=== PATIENT | female | born 1955 | race Hispanic/Latino ===

== ENCOUNTER 2018-04-05 19:43 | Emergency (ER) | payer SELFPAY ==
[2018-04-05] MEDS ORDERED: IBUPROFEN 600 MG TABLET ONE (20:26)
[2018-04-05] MEDS ORDERED: LIDOCAINE HCL-MPF 1% 2ML VIAL ONE (20:26)
[2018-04-05] MEDS ORDERED: CEFTRIAXONE SODIUM 1 GM ONE (20:26)
[2018-04-05] MEDS ORDERED: CLONIDINE HCL 0.1 MG TABLET ONE ×2 (20:59→22:01)
[2018-04-05] MEDS ORDERED: LORAZEPAM 2 MG/ML 1 ML VIAL ONE (21:00)
== END 2018-04-05 22:42 | disposition home or self-care (01) ==
LOC: EDH 19:43
DX: S51.851A Open bite of right forearm, initial encounter (principal); I10 Essential (primary) hypertension; W55.01XA Bitten by cat, initial encounter; Y93.89 Activity, other specified; Y92.89 Other specified places as the place of occurrence of the external cause; Y99.8 Other external cause status
CPT/HCPCS: 73090; 96372 ×2; 99284; J0696; J2060; J3490

== ENCOUNTER 2018-04-07 19:05 | Emergency (ER) | payer SELFPAY ==
[2018-04-07 20:14] LABS: BASOPHILS % (AUTO) 0.4 % (0.0-5.0); EOSINOPHILS % (AUTO) 4.4 % (0.0-8.0); HEMATOCRIT 40.1 % (36-48); LYMPHOCYTES % (AUTO) 16.7 % (21.0-51.0); MEAN CORPUSCULAR HEMOGLOBIN 28.5 pg (27.0-33.0); MEAN CORPUSCULAR HGB CONC 33.3 g/dL (32.0-36.0); MEAN CORPUSCULAR VOLUME 85.7 fL (79-99); MONOCYTES % (AUTO) 8.5 % (3.0-13.0); PLATELET COUNT (AUTO) 206 K/uL (130-400); RED BLOOD CELL COUNT(AUTO) 4.68 MIL/uL (4.00-5.50); RED CELL DISTRIBUTION WIDTH 13.6 % (11.0-15.5); WHITE BLOOD COUNT (AUTO) 11.9 K/uL (4.8-10.8)
[2018-04-07 20:26] LABS: CREATININE 0.7 mg/dL (0.5-1.5); POTASSIUM 3.1 mmol/L (3.5-5.1)
[2018-04-07 20:31] LABS: ALBUMIN 3.8 g/dL (3.5-5.0); BILIRUBIN,TOTAL 0.3 mg/dL (0.2-1.0); CRP QUANTITATIVE 11.4 mg/L (0.00-9.0)
[2018-04-07] MEDS ORDERED: METOPROLOL TARTRATE 1 MG/ML 5ML VIAL IV ONE (20:31)
[2018-04-07 20:37] LABS: APPEARANCE,URINE Clear (CLEAR); BILIRUBIN,URINE Negative (NEGATIVE); COLOR,URINE Yellow (YELLOW); GLUCOSE, URINE (UA) Negative (NEGATIVE); KETONES,URINE Negative (NEGATIVE); LEUKOCYTE ESTERASE ,URINE Negative (NEGATIVE); NITRATE,URINE Negative (NEGATIVE); OCCULT BLOOD,URINE Negative (NEGATIVE); PROTEIN,URINE Negative (NEGATIVE); UROBILINOGEN,URINE 0.2 mg/dL (0.2-1.0)
[2018-04-07 20:57] LABS: B-TYPE NATRIURETIC PEPTIDE 43 pg/mL (0-100)
[2018-04-07 21:59] LABS: ERYTHROCYTE SEDIMENTATION RATE 20 MM/HR (0-30)
== END 2018-04-07 21:43 | disposition home or self-care (01) ==
LOC: EDH 19:05
DX: S51.851A Open bite of right forearm, initial encounter (principal); I16.9 Hypertensive crisis, unspecified; E87.6 Hypokalemia; Z88.0 Allergy status to penicillin; Z90.710 Acquired absence of both cervix and uterus; Z98.890 Other specified postprocedural states; W55.01XA Bitten by cat, initial encounter; Y93.89 Activity, other specified; Y92.098 Other place in other non-institutional residence as the place of occurrence of the external cause; Y99.8 Other external cause status
CPT/HCPCS: 36415; 71045; 80053; 81003; 83880; 85025; 85651; 86140; 93005; 96374; 99285; J3490